=== PATIENT | female | born 2000 | race Two or more races ===

== ENCOUNTER 2022-07-25 17:13 | Emergency (ER) | payer BC ==
[~2022-07-25] VITALS: Ht 167.6 cm; Wt 53.5 kg
--- NOTE | 2022-07-25 18:21 | NUR ---
BIBRA 860 FROM HOME C/O LLQ AB PAIN X 2 HOURS. +NAUSEA, NO VOMITING, NO DIARRHEA. PT AMBULATED TO BED WITH STEADY GAIT. [id number].
--- NOTE | 2022-07-25 18:25 | NUR ---
ESTABLISHED IV 20G LEFT FOREARM. BLOOD DRAWN, SENT TO LAB FOR PICKUP.
--- NOTE | 2022-07-25 18:38 | NUR ---
URINE SAMPLE COLLECTED AND SENT TO LAB.
[2022-07-25] MEDS ORDERED: KETOROLAC TROMETHAMINE INJ 30 MG/ML VIAL IV ONE (19:00)
[2022-07-25 19:35] LABS: CALCIUM, SERUM 8.4 mg/dL (8.5-10.1); CREATININE 0.8 mg/dL (0.6-1.3); POTASSIUM 3.6 mmol/L (3.5-5.1)
[2022-07-25] MEDS ORDERED: KETOROLAC TROMETHAMINE 15 MG/ML VIAL ONE (19:37)
--- NOTE | 2022-07-25 19:54 | NUR ---
RECIEVED PT IN ER BED 3. PT IS ALERT AND ORIENTED. RR EVEN AND NON LABORED. C/O ABD PAIN , 5/10 ON PAIN SCALE. CONNECTED TO MONITOR. VSS. MOTHER AT BEDSIDE. WILL CONTINUE TO MONITOR
[2022-07-25 20:06] LABS: BASOPHILS % (AUTO) 0.2 % (0.0-2.0); EOSINOPHILS % (AUTO) 1.1 % (0.0-6.0); HEMATOCRIT 38 % (33-45); HEMOGLOBIN 12.6 g/dL (11.5-14.8); LYMPHOCYTES # (AUTO) 1.9 K/uL (0.8-4.8); LYMPHOCYTES % (AUTO) 20.4 % (20.0-44.0); MEAN CORPUSCULAR HGB CONC 33 g/dl (31.0-36.0); MEAN CORPUSCULAR VOLUME 85 fL (82-100); MONOCYTES # (AUTO) 0.7 K/uL (0.1-1.30); MONOCYTES % (AUTO) 7.8 % (2.0-12.0); NEUTROPHILS # (AUTO) 6.7 K/uL (1.8-8.9); NEUTROPHILS % (AUTO) 70.5 % (43.0-81.0); PLATELET COUNT (AUTO) 233 K/uL (150-450); RED BLOOD CELL COUNT(AUTO) 4.53 MIL/uL (4.0-5.2); WHITE BLOOD COUNT (AUTO) 9.5 K/uL (4.3-11.0)
[2022-07-25 20:20] LABS: BILIRUBIN,URINE NEGATIVE (NEGATIVE); COLOR,URINE YELLOW (YELLOW); LEUKOCYTE ESTERASE ,URINE 1+ (NEGATIVE); NITRITE, URINE NEGATIVE (NEGATIVE); PH,URINE 7.5 (5.0-8.0); PROTEIN,URINE NEGATIVE (NEGATIVE); UGLUCOSE NEGATIVE (NEGATIVE); UROBILINOGEN,URINE 0.2 EU/dL (0.2)
[2022-07-25] MEDS ORDERED: IOHEXOL-300 100 ML VIAL IV ONE (20:33)
[2022-07-25] MEDS ORDERED: IV NS 0.9% 250 ML IV ONE (20:33)
--- NOTE | 2022-07-25 20:40 | NUR ---
PT TAKEN TO CT SCAN VIA MIKA[facility]
[2022-07-25 22:53] LABS: BACTERIA,URINE 1+ /HPF (None Seen); RBC,URINE 51-80 /HPF (0-2)
[2022-07-25] MEDS ORDERED: IBUP-1953 PO (23:02)
[2022-07-25] MEDS ORDERED: SULF1TAB48 PO (23:02)
[2022-07-26 00:16] VITALS: BP 112/71
== END 2022-07-26 00:17 | disposition home or self-care (01) ==
LOC: ER 17:29
DX: R10.32 Left lower quadrant pain (principal); N39.0 Urinary tract infection, site not specified; Z79.899 Other long term (current) drug therapy
CPT/HCPCS: 99285; 74177; 96374; 85025; 80048; 87086; 84703; 81001; 36415; J7050; Q9967; J1885